=== PATIENT | female | born 1990 | race Hispanic/Latino ===

== ENCOUNTER 2018-04-13 18:32 | Outpatient (CLI) | payer MEDICAID ==
[2018-04-13] MEDS ORDERED: LACTATED RINGERS 500 ML IV ONE (19:54)
[2018-04-13 20:24] VITALS: BP 115/70
[2018-04-13 20:33] LABS: Mean Corpuscular HGB Conc 34 % (30-34); Mean Corpuscular Hemoglobin 30 pg (28-32); Mean Corpuscular Volume 87 fl (79-97); Platelet Count 205 K/mm3 (140-440); Red Cell Distribution Width 13.8 % (13.2-15.2)
[2018-04-13 20:41] LABS: Bacteria,Urine 1+ /HPF (Negative); Bilirubin,Urine NEG (Negative); Blood,Urine NEG (Negative); Color,Urine Yellow (Yellow); Mucus,Urine FEW /HPF; Protein,Urine <15 mg/dL mg/dL (Negative); Urobilinogen,Urine < 2.0 mg/dL (<2.0)
[2018-04-13 21:03] LABS: Alanine Aminotransferase 16 units/L (7-56)
[2018-04-13] MEDS ORDERED: BICITRA PO ONE (21:05)
[2018-04-13] MEDS ORDERED: TYLENOL PO ONE (21:06)
[2018-04-13 21:53] LABS: Uric Acid 3.8 mg/dL (3.5-7.6)
== END 2018-04-13 21:28 | disposition home or self-care (01) ==
LOC: TRG 18:32
PROVIDERS: ATTEND Obstetrics & Gynecology
DX: O47.02 False labor before 37 completed weeks of gestation, second trimester (principal); Z3A.23 23 weeks gestation of pregnancy; Z88.2 Allergy status to sulfonamides
CPT/HCPCS: 36415; 81001; 82565; 83615; 84450; 84460; 84550; 85027

== ENCOUNTER 2021-12-17 00:02 | Outpatient (CLI) | payer MEDICAID ==
[2021-12-17] MEDS ORDERED: LACTATED RINGERS 1,000 ML IV ONE (00:53)
[2021-12-17] MEDS ORDERED: ACETAMINOPHEN 325 MG TAB PO ONE (01:24)
[2021-12-17 01:51] VITALS: BP 98/56
--- NOTE | 2021-12-17 02:26 | Ultrasound Report ---
US OB limited, US OB BPP wo non-stress INDICATION / CLINICAL INFORMATION: ctx evaluation of amniotic fluid index. COMPARISON: None available. TECHNIQUE: Using a transcutaneous probe, multiple grayscale, color Doppler, and spectral Doppler imag es of the uterus and fetus were captured and stored. FINDINGS: Clinical estimate of gestational age is 40 weeks 1 day. BREATHING MOVEMENT = 2 GROSS BODY MOVEMENT = 2 TONE = 2 QUALITATIVE AMNIOTIC FLUID VOLUME = 2 TOTAL BIOPHYSICAL SCORE = 8/8 Single cephalic fetus with heart rate of 121 bpm. Amniotic fluid index is within normal limits measuring 16.9 cm. IMPRESSION: 1. Single living intrauterine fetus with normal amniotic fluid index. 2. Normal biophysical profile score of 8/8. Signer Name: Trevor Pruitt II, MD Signed: 12/17/2021 2:21 AM Workstation Name: [id number]
== END 2021-12-17 02:40 | disposition home or self-care (01) ==
LOC: TRG 00:02 → APU 00:03 → TRG 02:40
PROVIDERS: ATTEND Obstetrics & Gynecology
DX: O62.9 Abnormality of forces of labor, unspecified (principal); O48.0 Post-term pregnancy; O23.43 Unspecified infection of urinary tract in pregnancy, third trimester; N39.0 Urinary tract infection, site not specified; O99.333 Smoking (tobacco) complicating pregnancy, third trimester; F17.200 Nicotine dependence, unspecified, uncomplicated; Z3A.40 40 weeks gestation of pregnancy
CPT/HCPCS: 59025; 76815; 76819; 96360; J7120